=== PATIENT | female | born 1995 | race Caucasian/White ===

== ENCOUNTER → 2016-05-15 | Day surgery (SDC) | payer OTHER ==
[~2016-05-15] VITALS: Ht 167.6 cm; Wt 73.5 kg
[~2016-05-15] MED LIST: DOXYCYCLINE HY100 M2 PO; ORAL CONTRACEPTIVE
--- NOTE | 2016-05-15 09:40 | Operative Report ---
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 She underwent a successful left hip arthroscopy in the past. MRI showed a right hip labral tear. Risks and benefits of the procedure were discussed with the patient at length. Risks include but are not limited to nerve damage, muscle damage, infection, blood loss, blood clots, pulmonary embolus, and even . The patient agreed to the above risks and elected to proceed with surgery. Operative/Procedure Note Note: The patient was taken to the operating room and placed supine on the operating room table. General anesthesia was induced by the anesthesia team. The patient received IV antibiotics prior to incision. A timeout was performed prior to incision. The site marking was visualized prior to the incision. The patient was positioned on the hip table and the perineum was positioned up against a well-padded post. X-rays were taken to ensure adequate positioning and distraction of the extremity. The hip was prepped and draped in the normal sterile fashion. Traction was then applied. A spinal needle was used to enter the hip joint under x-ray guidance in the lateral portal position just anterior to the greater trochanter. An air arthrogram was established. The hip joint was insufflated with saline. The spinal needle was removed from the hip joint. This allowed the spinal needle to be reinserted through the capsule while avoiding the labrum. A wire was then inserted through the spinal needle. Over the wire a cannula was inserted. The scope was then inserted and under direct visualization an anterolateral portal was then established with a spinal needle. This was made just lateral to a sagittal line drawn down from the ASIS. A [place] blade was then inserted and a capsulotomy was performed connecting the 2 portals. The capsule was debrided with a shaver. Any bleeding vessels were identified and cauterized. The diagnostic arthroscopy was then performed which showed the above findings. A [place] blade was then inserted and the labrum was further let down from the acetabular rim. The shaver was used to debride the soft tissue deep to the labrum and to expose the bony acetabulum. A switching stick was then inserted and the bur was assembled over the switching stick. The bur was then used to decorticate the acetabulum. The bony resection started centrally at the superior acetabulum and then was tapered medially and laterally. This was performed to create a smooth, normal acetabular transition. Care was taken to protect the labrum during bony resection. X-rays were taken to ensure adequate bony resection. Next the acetabulum was drilled to place an anchor. The drill guide was used to drill while the chondral surface was visualized to ensure no violation of the chondral surface occurred. The anchor was then placed. The arthro-Green was then used to shuttle the suture. This was then tied down with a locking knot and several half hitches. The excess suture was cut. This process was repeated. A total of three 2.3 mm osteoraptor anchors were placed. The labrum was then probed and noted to be quite stable. This was then further stabilized with an RF device. The traction was then let down and the hip was flexed up to 45 degrees. The 30 degree scope was then used. A more proximal portal was established with a spinal needle just proximal to the greater trochanter. A spinal needle was inserted and a wire was then shuttled through the spinal needle. An 11 blade was used to incise a skin. A dilator was then placed over the wire. The soft tissue off the superior aspect of the femoral head neck junction was then taken down. The bur was then inserted and the femoroplasty was begun proximally. X- rays were taken to ensure adequate bony resection. The camera and the bur were then switched and further femoroplasty was begun to ensure a smooth normal transition from the femoral head down to the neck. Final x-rays were taken to ensure adequate femoroplasty. The hip joint was copiously irrigated. All instruments were removed. The portal sites were closed with 3-0 nylon suture in a simple interrupted fashion and the hip joint was insufflated with 20 mL of 0.25% percent Marcaine. A dry sterile dressing was applied and the patient was transferred to PACU in stable condition. Findings: Torn anterior superior labrum. Posterior labral fraying. Femoral head articular cartilage intact. Chondral bubble sign in the periphery of the acetabulum. CAM lesion present. No loose bodies noted.
--- NOTE | 2016-05-15 17:39 | RADIOLOGY REPORT ---
EXAMINATION: XR HIP, RIGHT C-ARM FLUOROSCOPIC ASSISTANCE IN THE OR CLINICAL INFORMATION: Right hip arthroplasty. COMPARISON: None TECHNIQUE: 4 spot radiographs were obtained at the time of the procedure using C-arm fluoroscopy. Total fluoroscopy time was 53 seconds. FINDINGS: 2 radiopaque devices are seen projecting over the junction between the superior part of the right humeral head and neck. Full procedural details will be dictated by Dr. Hogan. IMPRESSION: Right hip arthroplasty. Full procedural details will be dictated by Dr. Hogan.
== END ==
LOC: STS 00:53
DX: M25.851 Other specified joint disorders, right hip (principal); J45.909 Unspecified asthma, uncomplicated
CPT/HCPCS: 73501; 81025; J0131; J0690; J1200; J2250